=== PATIENT | female | born 1985 | race Caucasian/White ===

== ENCOUNTER 2018-02-08 08:30 | Emergency (ER) | payer OTHER ==
[~2018-02-08] VITALS: Ht 162.6 cm; Wt 75.0 kg
[~2018-02-08 08:30] MED LIST: Z.0.NO CURRENT MEDS
[2018-02-08] MEDS ORDERED: GADODIAMIDE PF 287 MG/ML 5 ML VIAL (for RAD MRI) IVCONTRAST ONE (08:31)
[2018-02-08 08:33] VITALS: BP 149/89; PULSE 96; RESP 16; TEMP 97.8; O2SAT 97
[2018-02-08] MEDS ORDERED: PROPARACAINE HCL 0.5% OPHT SOLN 15 ML BTL LEFT EYE ONE (09:00)
--- NOTE | 2018-02-08 09:08 | PD ---
HPI Chief Complaint: Neuro Symptoms/ Deficits Time Seen by Provider: 08:50 Travel History International Travel<30 days: No Contact w/Intl Traveler<30days: No Traveled to known affect area: No History of Present Illness HPI The patient is a 32-year-old female who presents to the emergency department for left eye pain and headache. The patient states she developed a sharp piercing headache in the posterior aspect of her head 1 week ago. The pain is located on left side, posterior, but over the last several days has been causing blurry vision. The patient states that she has noticed blurry vision in the left eye, she does have a history of vision problems does wear glasses. Her last eye exam was 6 months ago. The patient denies any redness to the eye, denies any photophobia, but does note blurry vision with the headaches. The headaches are sharp and intermittent, there is no nausea, vomiting, neck pain, or focal deficits. The patient denies any known history of glaucoma denies any trauma to the left eye. Symptoms are moderate. PFSH Past Medical History Medical History: Denies Significant Hx Tetanus Vaccination: < 5 Years ?: Not Dilation and Curettage (D&C): Yes Past Surgical History Gynecologic Surgery: Yes (ablasion) Hysterectomy: Yes Social History Alcohol Use: Yes (wine daily) Tobacco Use: Yes Substance Use: No Allergies-Medications (Allergen,Severity, Reaction): Coded Allergies: No Known Allergies (Verified Adverse Reaction, Unknown, 02/08/18) Reported Meds & Prescriptions Reported Meds & Active Scripts Active No Active Prescriptions or Reported Medications Review of Systems Except as stated in HPI: all other systems reviewed are Neg General / Constitutional: No: Fever Eyes: Positive: Blurred Vision, Pain, Visual changes, No: Photophobia, Redness , Foreign Body Sensation HENT: Positive: Headaches, No: Neck Pain Gastrointestinal: No: Nausea, Vomiting Neurologic: Positive: Headache, No: Focal Abnormalities, Change in Mentation Physical Exam Narrative GENERAL: Awake, alert, pleasant 32-year-old female who appears her stated age and is in no acute respiratory distress. SKIN: Focused skin assessment warm/dry. HEAD: Atraumatic. Normocephalic. EYES: Pupils equal and round. Pupils are 4 mm bilateral and reactive. EOMs are intact. Mild pain with EOM movement to the left. Patient is able to see fingers at a distance of 2 feet without difficulty. Vision screen reveals vision the left eye 20/30, right 20/25. Funduscopic examination is unremarkable , no obvious disc abnormality. Philip-Pen measurement on the left was 17. ENT: No nasal bleeding or discharge. Mucous membranes pink and moist. NECK: Trachea midline. No JVD. No tenderness of the cervical vertebrae or paravertebral muscles. CARDIOVASCULAR: Regular rate and rhythm. No murmur appreciated. RESPIRATORY: No accessory muscle use. Clear to auscultation. Breath sounds equal bilaterally. GASTROINTESTINAL: Abdomen soft, non-tender, nondistended. MUSCULOSKELETAL: No obvious deformities. No clubbing. No cyanosis. No edema. NEUROLOGICAL: Awake and alert. No obvious cranial nerve deficits. Motor grossly within normal limits. Normal speech. Nonfocal. Oriented 4. PSYCHIATRIC: Appropriate mood and affect; insight and judgment normal. Data Data Last Documented VS Vital Signs Date Time Temp Pulse Resp B/P (MAP) Pulse Ox O2 Delivery O2 Flow Rate FiO2 02/08/18 12:00 74 19 125/65 (85) 98 Room Air 02/08/18 08:33 97.8 Orders Orders Proparacaine 0.5% Opth Soln (Alcaine 0.5 (02/08/18 09:00) Basic Metabolic Panel (Bmp) (02/08/18 09:00) Westergren Sedimentation Rate (02/08/18 09:00) C-Reactive Protein (Crp) (02/08/18 09:00) Complete Blood Count With Diff (02/08/18 09:00) Mri Brain W&W/O Contrast (02/08/18 ) Ondansetron Odt (Zofran Odt) (02/08/18 11:00) Gadodiamide Pf Inj (Omniscan Pf Inj) (02/08/18 08:31) Metoclopramide Inj (Reglan Inj) (02/08/18 15:00) Ketorolac Inj (Toradol Inj) (02/08/18 15:00) Sodium Chlor 0.9% 1000 Ml Inj (Ns 1000 M (02/08/18 15:00) Diphenhydramine Inj (Benadryl Inj) (02/08/18 15:00) Ed Discharge Order (02/08/18 15:14) Labs Laboratory Tests Test 02/08/18 09:30 White Blood Count 7.0 TH/MM3 Red Blood Count 4.82 MIL/MM3 Hemoglobin 15.0 GM/DL Hematocrit 44.1 % Mean Corpuscular Volume 91.4 FL Mean Corpuscular Hemoglobin 31.0 PG Mean Corpuscular Hemoglobin Concent 34.0 % Red Cell Distribution Width 14.0 % Platelet Count 294 TH/MM3 Mean Platelet Volume 7.9 FL Neutrophils (%) (Auto) 57.1 % Lymphocytes (%) (Auto) 29.9 % Monocytes (%) (Auto) 9.7 % Eosinophils (%) (Auto) 2.2 % Basophils (%) (Auto) 1.1 % Neutrophils # (Auto) 4.0 TH/MM3 Lymphocytes # (Auto) 2.1 TH/MM3 Monocytes # (Auto) 0.7 TH/MM3 Eosinophils # (Auto) 0.2 TH/MM3 Basophils # (Auto) 0.1 TH/MM3 CBC Comment DIFF FINAL Differential Comment Erythrocyte Sedimentation Rate 1 mm/hr Blood Urea Nitrogen 9 MG/DL Creatinine 0.68 MG/DL Random Glucose 81 MG/DL Calcium Level 8.4 MG/DL Sodium Level 142 MEQ/L Potassium Level 3.9 MEQ/L Chloride Level 109 MEQ/L Carbon Dioxide Level 22.6 MEQ/L Anion Gap 10 MEQ/L Estimat Glomerular Filtration Rate 100 ML/MIN C-Reactive Protein LESS THAN 0.29 MG/DL MDM Medical Decision Making Medical Screen Exam Complete: Yes Emergency Medical Condition: Yes Medical Record Reviewed: Yes Interpretation(s) Last Impressions Brain MRI 02/08/18 0000 Signed Impressions: CONCLUSION: 1. Negative MRI of the brain without and with contrast. 2. There is no sinus thrombosis. 3. I do not see an etiology for the left-sided headache. 4. Early subacute subarachnoid hemorrhage can be missed by MRI. I see no evide nce for such on this exam. Laboratory Tests Test 02/08/18 09:30 White Blood Count 7.0 TH/MM3 Red Blood Count 4.82 MIL/MM3 Hemoglobin 15.0 GM/DL Hematocrit 44.1 % Mean Corpuscular Volume 91.4 FL Mean Corpuscular Hemoglobin 31.0 PG Mean Corpuscular Hemoglobin Concent 34.0 % Red Cell Distribution Width 14.0 % Platelet Count 294 TH/MM3 Mean Platelet Volume 7.9 FL Neutrophils (%) (Auto) 57.1 % Lymphocytes (%) (Auto) 29.9 % Monocytes (%) (Auto) 9.7 % Eosinophils (%) (Auto) 2.2 % Basophils (%) (Auto) 1.1 % Neutrophils # (Auto) 4.0 TH/MM3 Lymphocytes # (Auto) 2.1 TH/MM3 Monocytes # (Auto) 0.7 TH/MM3 Eosinophils # (Auto) 0.2 TH/MM3 Basophils # (Auto) 0.1 TH/MM3 CBC Comment DIFF FINAL Differential Comment Erythrocyte Sedimentation Rate 1 mm/hr Blood Urea Nitrogen 9 MG/DL Creatinine 0.68 MG/DL Random Glucose 81 MG/DL Calcium Level 8.4 MG/DL Sodium Level 142 MEQ/L Potassium Level 3.9 MEQ/L Chloride Level 109 MEQ/L Carbon Dioxide Level 22.6 MEQ/L Anion Gap 10 MEQ/L Estimat Glomerular Filtration Rate 100 ML/MIN C-Reactive Protein LESS THAN 0.29 MG/DL Differential Diagnosis Differential diagnosis includes ocular migraine, cavernous sinus thrombosis, venous thrombosis, intracranial tumor, intracranial hemorrhage, subarachnoid hemorrhage, retinal detachment, central artery occlusion, central venous occlusion. Narrative Course IV was established, labs are drawn and sent, the patient was placed on cardiac telemetry monitoring and continuous pulse oximetry monitoring. Funduscopic examination was performed. MRI of the brain with and without contrast was ordered to evaluate for possible cavernous sinus thrombosis. The patient's laboratory evaluation is unremarkable. Sed rate is 1. CRP is less than 0.29. Physical examination is unremarkable. MRI the brain is negative, no evidence of sinus thrombosis. The patient may have ocular migraine versus other underlying ophthalmologic disorder. The patient's primary pressure in the left was 17, I doubt acute glaucoma with no redness, no fixed pupil, normal pressure. The patient was administered Reglan, Toradol, Benadryl, and IV fluids for possible ocular migraine. A call was placed to the on-call perishable fruit inspector as the patient may benefit from outpatient ophthalmology follow- up. I discussed the patient with Dr. Mercedes who will evaluate the patient later this week, it if that workup is negative, most likely this is related to an ocular migraine. Diagnosis Primary Impression: Cephalgia Qualified Codes: R51 - Headache Additional Impression: Blurry vision, left eye Referrals: Ary Mercedes MD call for appointment Patient Instructions: General Instructions Additional Instructions: Please provide the patient a copy of her laboratory evaluation and MRI at discharge. Follow-up with ophthalmology. Call Dr. Mercedes's office today to make an appointment later this week. Med/Other Pt SpecificInfo: No Change to Meds Scripts No Active Prescriptions or Reported Meds Disposition: 01 DISCHARGE HOME Condition: Stable Brayan Lei MD Feb 08, 2018 09:08
[2018-02-08 10:00] LABS: BASOPHIL # 0.1 TH/MM3 (0-0.2); BASOPHIL % 1.1 % (0.0-2.0); EOSINOPHIL # 0.2 TH/MM3 (0-0.4); EOSINOPHIL % 2.2 % (0.0-4.0); HEMATOCRIT 44.1 % (35.0-46.0); LYMPH % 29.9 % (9.0-44.0); LYMPHOCYTE # 2.1 TH/MM3 (1.0-4.8); MEAN CELL VOLUME 91.4 FL (80.0-100.0); MEAN PLATELET VOLUME 7.9 FL (7.0-11.0); MONO % 9.7 % (0.0-8.0); MONOCYTE # 0.7 TH/MM3 (0-0.9); NEUT % 57.1 % (16.0-70.0); PLATELET COUNT 294 TH/MM3 (150-450); RED BLOOD COUNT 4.82 MIL/MM3 (4.00-5.30)
[2018-02-08 10:13] LABS: BICARBONATE 22.6 MEQ/L (21.0-32.0); BLOOD UREA NITROGEN 9 MG/DL (7-18); CALCIUM 8.4 MG/DL (8.5-10.1); CHLORIDE 109 MEQ/L (98-107); CREATININE 0.68 MG/DL (0.50-1.00); GLOMERULAR FILTRATION RATE 100 ML/MIN (>89); GLUCOSE,RANDOM 81 MG/DL (74-106); SODIUM (NA) 142 MEQ/L (136-145)
[2018-02-08 10:14] LABS: C-REACTIVE PROTEIN LESS THAN 0.29 MG/DL (0.00-0.30)
[2018-02-08] MEDS ORDERED: ONDANSETRON ODT 4 MG TAB PO ONE (11:00)
[2018-02-08 12:00] VITALS: BP 125/65; PULSE 74; RESP 19; O2SAT 98
--- NOTE | 2018-02-08 14:36 | RADRPT ---
EXAM DATE: 02/08/2018 2:29 PM EDT AGE/SEX: 32 years / Female INDICATIONS: Cephalgia. Left-sided headache with vision changes rule out cavernous sinus thrombos is. CLINICAL DATA: This is the patient's initial encounter. Patient reports that signs and symptoms have been present for 1 day and indicates a pain score of 10/10. MEDICAL/SURGICAL HISTORY: None. Hysterectomy. Uterine ablation. COMPARISON: No prior exams available for comparison. TECHNIQUE: Multiplanar, multisequence examination of the brain was performed without and with 15 ml O mniscan (gadodiamide) contrast as a single exam dose. FINDINGS: Cerebrum: The ventricles are normal for age. No evidence of midline shift, mass lesion, hemorrhage or acute infarction. No extraaxial fluid collections are seen. The pituitary gland and suprasellar cistern are normal in configuration. White Matter: No significant signal abnormalities are seen in the white matter. Posterior Fossa: The cerebellum and brainstem are intact. The 4th ventricle is midline. The cerebel lopontine angle is unremarkable. The cerebellar tonsils are normal in position. Diffusion Imaging: No focal areas of restricted diffusion are seen. No evidence of acute infarction . Extracranial: The visualized portions of the orbits and paranasal sinuses are unremarkable. Post Contrast: No abnormal areas of parenchymal or dural enhancement. No evidence of blood-brain ba rrier breakdown. CONCLUSION: 1. Negative MRI of the brain without and with contrast. 2. There is no sinus thrombosis. 3. I do not see an etiology for the left-sided headache. 4. Early subacute subarachnoid hemorrhage can be missed by MRI. I see no evidence for such on this e xam. Electronically signed by: Josh Bueno MD 02/08/2018 2:34 PM EDT
[2018-02-08] MEDS ORDERED: METOCLOPRAMIDE HCL 10 MG/2 ML VIAL IV PUSH ONE (15:00)
[2018-02-08] MEDS ORDERED: KETOROLAC TROMETHAMINE 30 MG/ML (IVP) VIAL IV PUSH ONE (15:00)
[2018-02-08] MEDS ORDERED: SODIUM CHLOR 0.9% 1000 ML INJ 1,000 ML IV ONE (15:00)
[2018-02-08] MEDS ORDERED: diphenhydrAMINE HCL 50 MG/ML VIAL IV PUSH ONE (15:00)
== END 2018-02-08 16:26 | disposition home or self-care (01) ==
LOC: NEPC 08:30
DX: R51 Headache (principal); H53.8 Other visual disturbances; Z72.0 Tobacco use
CPT/HCPCS: 70553; 80048; 85025; 85652; 86140; 96361; 96374; 96375; 99284; A9579; J1200; J1885; J2765; J7030